=== PATIENT | female | born 1960 | race Caucasian/White ===

== ENCOUNTER → 2017-01-25 | Outpatient (CLI) | payer OTHER ==
[~2017-01-25] MED LIST: ASCO-63 PO; CHOL100027 PO; LUTE15CA PO; METO25TA3 PO; MULTTAB58 PO; PANT40TA PO
== END | disposition home or self-care (01) ==
LOC: C.PATHSPEC 15:58
PROVIDERS: ATTEND Obstetrics & Gynecology
DX: N84.1 Polyp of cervix uteri (principal)

== ENCOUNTER → 2017-02-03 | Outpatient (CLI) | payer OTHER ==
--- NOTE | 2017-02-03 12:32 | MAMMOGRAPHY REPORT ---
UNILATERAL RIGHT DIGITAL DIAGNOSTIC MAMMOGRAM TOMOSYNTHESIS WITH CAD AND TARGETED RIGHT ULTRASOUND: 02/03/2017 CLINICAL HISTORY: 56-year-old woman reported a history of remote bilateral breast pain, but now most ly right breast pain concentrated in the upper inner quadrant but extending throughout the entire br east. History of prior benign right breast ultrasound guided core biopsy. TECHNIQUE: Right breast CC and MLO 2-D digital and tomosynthesis images and an exaggerated medial ri ght CC 2-D view was obtained. Current study was also evaluated with a Computer Aided Detection (CAD ) system. COMPARISON: Comparison is made to exams dated: 04/08/2016 ultrasound biopsy, 04/08/2016 mammogram, ultrasound, 03/31/2016 mammogram, and 03/16/2016 mammogram - [facility]. BREAST COMPOSITION: The tissue of the right breast is heterogeneously dense, which may obscure smal l masses. FINDINGS: There is a stable ribbon shaped metallic biopsy marker in the 1:00 to 2:00 posterior right breast, at the site of the biopsied benign mass. No new suspicious mass, architectural distortion or cluster of suspicious microcalcifications is seen in the right breast. Real-time high-resolution ultrasound was performed in the area of pain pointed out by the patient, t hroughout the upper inner quadrant 12:00 to 3:00 axes but also including the 4:00 axis, and then thr oughout the remainder of the right breast. A solid mass with internal biopsy marker is again identi fied in the 1:00 axis that measures 18.1 x 10.8 mm. This has not significantly changed comparing to the ultrasound dated 03/31/2016 at which time it measured 18.0 x 10.4 mm. No other new suspicious solid or cystic mass is identified on ultrasound. IMPRESSION: ACR BI-RADS CATEGORY 2: BENIGN, TARGETED ULTRASOUND ACR BI-RADS CATEGORY 2: BENIGN Stable mammographic and sonographic appearance of the right breast, without mammographic or targeted sonographic evidence of malignancy. Recommend annual screening of the right breast in 1 year. Lef t breast annual mammography is due in March 2017. These results and recommendations were discussed with the patient at the time of the exam. She tent atively scheduled the left breast screening appointment prior to leaving our department. Approximately 10% of breast cancers are not detected with mammography. A negative mammographic repor t should not delay biopsy if a clinically suggestive mass is present. Devorah Ireland M.D. ay/:02/03/2017 10:33:50 Candy Separator Enrobing: Flora SANTAMARIA(Claudia)(Gay), [facility] letter sent: Normal 1/2 BI-RADS Code: ACR BI-RADS Category 2: Benign Ultrasound BI-RADS: ACR BI-RADS Category 2: Benign
== END | disposition home or self-care (01) ==
LOC: C.MAMM 08:40
PROVIDERS: ATTEND Obstetrics & Gynecology
DX: N64.89 Other specified disorders of breast (principal)

== ENCOUNTER 2017-03-11 09:25 | Emergency (ER) | payer OTHER ==
[~2017-03-11] VITALS: Ht 160 cm; Wt 59.5 kg
[2017-03-11 09:28] VITALS: TEMP 36.7; Ht 160 cm; Wt 59.5 kg
[2017-03-11] MEDS ORDERED: KETOROLAC TROMETHAMINE 30 MG/ML VIAL IV STA (10:03)
[2017-03-11] MEDS ORDERED: DiphenhydrAMINE HCL 50 MG/ML VIAL IV STA (10:03)
[2017-03-11] MEDS ORDERED: SODIUM CHLORIDE 0.9% 1000ML 1,000 ML IV STA (10:03)
[2017-03-11] MEDS ORDERED: PROCHLORPERAZINE 5 MG/ML 2 ML VIAL IV STA (10:03)
[2017-03-11 10:23] LABS: BASO % 0.5 %; BASO ABS # 0.03 K/uL (0-0.2); COMPLETE YES; EOS % 3.1 %; HEMATOCRIT 40.7 % (37-47); IG% 0.2 %; LYMPH % 19.4 %; LYMPH ABS # 1.13 K/uL (1.2-3.4); MEAN CELL VOLUME 87.7 fL (80-100); MEAN CORPUSCULAR HEMOGLOBIN 29.7 pg (25-34); MEAN CORPUSCULAR HGB CONC 33.9 g/dl (32-36); MEAN PLATELET VOLUME 10.4 fL (7.4-10.4); MONO % 8.1 %; NEUT % 68.7 %; PLATELET COUNT 165 K/uL (130-400); RED BLOOD COUNT 4.64 M/uL (4.2-5.4); WHITE BLOOD COUNT 5.82 K/uL (4.8-10.8)
--- NOTE | 2017-03-11 10:24 | EMERGENCY ROOM VISIT NOTE ---
History Report prepared by Francisca: Trudy Funes Under the Supervision of: Dr. Alona Vazquez M.D. First contact with patient: 09:52 Chief Complaint: STROKE SYMPTOMS Stated Complaint: DISORIENTED, NUMBNESS, FLASHING LIGHTS Nursing Triage Summary: Patient reports flashing lights in eyes, pain in right side of head, disoriented and numbness in bilateral fingers and nose. Pt states symptoms began approx 1.5 hours ago while eating breakfast. History of Present Illness The patient is a 56 year old female who presents to the Emergency Room with complaints of an episode of stroke symptoms this morning. She reports flashing lights in her eyes, feeling disoriented and confused, right sided headache, difficulty swallowing, and numbness on the left side of her face. She denies any hand pain or trouble walking. The numbness has resolved now. She has had these symptoms many times before throughout her life. She has seen a neurologist several times. She has not had these symptoms in many years and she is concerned about stroke. She reports she has been under increased stress for the past few months. Source of History: patient Onset: this morning Position: other (global) Quality: other (stroke symptoms) Timing: other (episodic) Associated Symptoms: + headache, + numbness Note: Pt reports flashing lights in her eyes, feeling disoriented and confused, difficulty swallowing. Pt denies hand pain, trouble walking. Review of Systems See HPI for pertinent positives & negatives. A total of 10 systems reviewed and were otherwise negative. Past Medical & Surgical Medical Problems: (1) Kidney disease Family History Cancer Gallbladder disease Heart disease Hypertension Lung disease Social History Smoking Status: Former Smoker Alcohol Use: none Marital Status: Housing Status: lives with roommate Occupation Status: employed Current/Historical Medications Scheduled Ascorbic Acid (Vitamin C), 1 TAB PO QAM Cholecalciferol (Vitamin D 1000 Unit), 1,000 INTER.UNIT PO QAM Lutein-Zeaxanthin (Lutein), 1 CAP PO QAM Metoprolol Succ (Toprol Xl) (Toprol-Xl), 25 MG PO QAM Multiple Vitamin (Multivitamin), 1 TAB PO QAM Pantoprazole (Protonix), 40 MG PO QAM Allergies Coded Allergies: Penicillins (Verified Allergy, Unknown, swelling, 03/11/17) Physical Exam Vital Signs Date Time Temp Pulse Resp B/P Pulse Ox O2 Delivery O2 Flow Rate FiO2 03/11/17 11:21 62 18 111/62 99 Room Air 03/11/17 10:00 70 03/11/17 09:28 36.7 65 17 153/82 99 Room Air Physical Exam Vital signs reviewed. General: Well-appearing, in no significant distress. HEENT: No scleral icterus, PERRLA, neck supple. Atraumatic. Cardiovascular: Regular rate and rhythm, no extra sounds. Pulmonary: Clear to auscultation bilaterally, normal work of breathing. Abdomen: Soft, nontender, nondistended, positive bowel sounds. Musculoskeletal: Atraumatic, no peripheral edema. Neurologic: Patient awake alert and oriented x 3, full strength in all 4 extremities. Cranial nerves 2 through 12 grossly intact. Skin: Warm, dry, no rash Medical Decision & Procedures ER Provider Diagnostic Interpretation: Radiology results as stated below per my review and radiologist interpretation: CT OF THE HEAD WITHOUT CONTRAST CLINICAL HISTORY: Cerebrovascular accident symptoms. Numbness. Altered mental status. COMPARISON STUDY: No previous studies for comparison. CT DOSE: 767.83 mGy.cm TECHNIQUE: Helical axial images of the head were obtained without IV contrast. Automated exposure control was utilized for the study. FINDINGS: This exam is mildly compromised by motion artifact. No acute intracranial hemorrhage, midline shift or mass effect is present. Ventricular system is normal. Basilar cisterns are patent. There are no extra-axial collections. Broussard-white differentiation is maintained. There are no findings to suggest acute dural sinus thrombosis or acute territorial infarct. Visualized portions of the mastoid air cells are clear. There is mild mucosal thickening of the ethmoid sinuses. There are no significant calvarial abnormalities. IMPRESSION: 1. No acute intracranial findings. 2. Study mildly compromised by motion artifact. Electronically signed by: Yomi Casey M.D. 03/11/2017 10:47 AM Dictated Date/Time: 03/11/2017 10:43 AM Laboratory Results 03/11/17 10:00 Red Blood Count 4.64, Mean Corpuscular Volume 87.7, Mean Corpuscular Hemoglobin 29.7, Mean Corpuscular Hemoglobin Concent 33.9, Mean Platelet Volume 10.4, Neutrophils (%) (Auto) 68.7, Lymphocytes (%) (Auto) 19.4, Monocytes (%) (Auto) 8.1, Eosinophils (%) (Auto) 3.1, Basophils (%) (Auto) 0.5, Neutrophils # (Auto) 4.00, Lymphocytes # (Auto) 1.13, Monocytes # (Auto) 0.47, Eosinophils # (Auto) 0.18, Basophils # (Auto) 0.03 03/11/17 10:00 Test 03/11/17 09:43 03/11/17 10:00 03/11/17 10:10 Bedside Prothrombin Time INR 1.0 (0.9-1.1) Bedside Glucose 103 mg/dl (70-90) White Blood Count 5.82 K/uL (4.8-10.8) Red Blood Count 4.64 M/uL (4.2-5.4) Hemoglobin 13.8 g/dL (12.0-16.0) Hematocrit 40.7 % (37-47) Mean Corpuscular Volume 87.7 fL (80-100) Mean Corpuscular Hemoglobin 29.7 pg (25-34) Mean Corpuscular Hemoglobin Concent 33.9 g/dl (32-36) Platelet Count 165 K/uL (130-400) Mean Platelet Volume 10.4 fL (7.4-10.4) Neutrophils (%) (Auto) 68.7 % Lymphocytes (%) (Auto) 19.4 % Monocytes (%) (Auto) 8.1 % Eosinophils (%) (Auto) 3.1 % Basophils (%) (Auto) 0.5 % Neutrophils # (Auto) 4.00 K/uL (1.4-6.5) Lymphocytes # (Auto) 1.13 K/uL (1.2-3.4) Monocytes # (Auto) 0.47 K/uL (0.11-0.59) Eosinophils # (Auto) 0.18 K/uL (0-0.5) Basophils # (Auto) 0.03 K/uL (0-0.2) RDW Standard Deviation 45.3 fL (36.4-46.3) RDW Coefficient of Variation 13.9 % (11.5-14.5) Immature Granulocyte % (Auto) 0.2 % Immature Granulocyte # (Auto) 0.01 K/uL (0.00-0.02) Anion Gap 4.0 mmol/L (3-11) Est Creatinine Clear Calc Drug Dose 75.1 ml/min Estimated GFR () 113.0 Estimated GFR (Non- 97.5 BUN/Creatinine Ratio 21.1 (10-20) Calcium Level 9.2 mg/dl (8.5-10.1) Magnesium Level 2.4 mg/dl (1.8-2.4) Total Bilirubin 0.6 mg/dl (0.2-1) Direct Bilirubin 0.1 mg/dl (0-0.2) Aspartate Amino Transf (AST/SGOT) 30 U/L (15-37) Alanine Aminotransferase (ALT/SGPT) 45 U/L (12-78) Alkaline Phosphatase 93 U/L (45-117) Total Creatine Kinase 54 U/L (26-192) Creatine Kinase MB 0.9 ng/ml (0.5-3.6) Creatine Kinase MB Ratio 1.7 (0-3.0) Total Protein 7.5 gm/dl (6.4-8.2) Albumin 4.1 gm/dl (3.4-5.0) Bedside Troponin I 0.000 ng/ml (0-0.045) Laboratory results per my review. Medications Administered Medications (Trade) Dose Ordered Sig/[place]urel Route Start Time Stop Time Status Last Admin Dose Admin Prochlorperazine Edisylate (Compazine Inj) 10 mg NOW STAT IV 03/11/17 10:03 03/11/17 10:05 DC 03/11/17 10:23 10 MG Diphenhydramine HCl (Benadryl Inj) 25 mg NOW STAT IV 03/11/17 10:03 03/11/17 10:05 DC 03/11/17 10:23 25 MG Ketorolac Tromethamine 30 mg 30 mg NOW STAT IV 03/11/17 10:03 03/11/17 10:05 DC 03/11/17 10:23 30 MG Sodium Chloride (Nss 1000ml) 1,000 ml @ 999 mls/hr Q1H1M STAT IV 03/11/17 10:03 03/11/17 11:03 DC 03/11/17 10:22 999 MLS/HR ECG Indication: weakness Rate (beats per minute): 65 Rhythm: normal sinus Findings: no acute ischemic change, no ectopy ED Course 1002: Past medical records reviewed. The patient was evaluated in room B11B. A complete history and physical examination was performed. 1003: NSS 1000 ml @ 999 mls/hr IV, Toradol Inj 30 mg IV, Benadryl Inj 25 mg IV, Compazine Inj 10 mg IV. 1118: Upon reevaluation, the patient appeared to have improvement of her symptoms. I discussed findings with her. She verbalized agreement of the treatment plan. She was discharged home. Medical Decision Differential diagnoses: Intracranial hemorrhage, intracranial mass, migraine headache, tension headache , sinusitis, meningitis This patient was evaluated and appeared to be in no significant distress. IV access was obtained and laboratory work was drawn. The patient's physical exam is unrevealing. There is no sign of stroke. Patient's laboratory work is unrevealing. The CT scan of the head is negative for acute abnormality. Patient was feeling improved after IV Compazine, IV Benadryl and IV Toradol. She was hydrated with normal saline solution. The patient had no pain on reevaluation. I suspect the patient is suffering from a migraine syndrome. She was encouraged to follow-up with neurology and her primary care physician. She will return to the ER for worsening of symptoms or any medical concerns. Impression Primary Impression: Migraine syndrome Scribe Attestation The scribe's documentation has been prepared under my direction and personally reviewed by me in its entirety. I confirm that the note above accurately reflects all work, treatment, procedures, and medical decision making performed by me. Departure Information Dispostion Home / Self-Care Referrals Thanh Norris M.D. (PCP) Forms HOME CARE DOCUMENTATION FORM, IMPORTANT VISIT INFORMATION Patient Instructions My [facility] Additional Instructions Diagnosis: Migraine syndrome. Drink plenty of clear fluids. Try to rest on a regular schedule. Tylenol 650 mg every 6 hours as needed for pain. Ibuprofen 600 mg every 6 hours as needed for pain with food. Follow-up with your physician this week for reevaluation and consideration of neurology referral. Return to the ER for worsening of symptoms or any medical concerns.
[2017-03-11 10:42] LABS: BUN/CREATININE RATIO 21.1 (10-20); CALCIUM 9.2 mg/dl (8.5-10.1); CREATININE 0.7 mg/dl (0.60-1.20); MAGNESIUM 2.4 mg/dl (1.8-2.4); POTASSIUM 3.8 mmol/L (3.5-5.1)
[2017-03-11 10:47] LABS: CKMB/CK RATIO 1.7 (0-3.0)
--- NOTE | 2017-03-11 10:49 | DIAGNOSTIC IMAGING REPORT ---
CT OF THE HEAD WITHOUT CONTRAST CLINICAL HISTORY: Cerebrovascular accident symptoms. Numbness. Altered mental status. COMPARISON STUDY: No previous studies for comparison. CT DOSE: 767.83 mGy.cm TECHNIQUE: Helical axial images of the head were obtained without IV contrast. Automated exposure control was utilized for the study. FINDINGS: This exam is mildly compromised by motion artifact. No acute intracranial hemorrhage, midline shift or mass effect is present. Ventricular system is normal. Basilar cisterns are patent. There are no extra-axial collections. Broussard-white differentiation is maintained. There are no findings to suggest acute dural sinus thrombosis or acute territorial infarct. Visualized portions of the mastoid air cells are clear. There is mild mucosal thickening of the ethmoid sinuses. There are no significant calvarial abnormalities. IMPRESSION: 1. No acute intracranial findings. 2. Study mildly compromised by motion artifact. Electronically signed by: Yomi Casey M.D. 03/11/2017 10:47 AM Dictated Date/Time: 03/11/2017 10:43 AM
[2017-03-11 11:21] VITALS: BP 111/62; PULSE 62; O2SAT 99
== END 2017-03-11 11:51 | disposition home or self-care (01) ==
LOC: C.EDB 09:27
DX: G43.909 Migraine, unspecified, not intractable, without status migrainosus (principal); N28.9 Disorder of kidney and ureter, unspecified; Z80.9 Family history of malignant neoplasm, unspecified; Z83.79 Family history of other diseases of the digestive system; Z82.49 Family history of ischemic heart disease and other diseases of the circulatory system; Z83.6 Family history of other diseases of the respiratory system; Z87.891 Personal history of nicotine dependence; Z79.899 Other long term (current) drug therapy

== ENCOUNTER → 2017-03-17 | Outpatient (CLI) | payer OTHER ==
[~2017-03-17] MED LIST changes: +CYCL10TA6 PO; +PRED20TA2 PO; +ULT/50 PO
--- NOTE | 2017-03-17 15:49 | MAMMOGRAPHY REPORT ---
UNILATERAL LEFT DIGITAL SCREENING MAMMOGRAM TOMOSYNTHESIS WITH CAD: 03/17/2017 CLINICAL HISTORY: Due for routine mammography of the left breast. The patient reports no current co mplaints of the left breast. She does report continued right breast pain, for which she had a diagn ostic workup January 2017. TECHNIQUE: Breast tomosynthesis in addition to standard 2D mammography was performed. Current study was also evaluated with a Computer Aided Detection (CAD) system. Left CC and MLO 2-D and tomosynth esis images were obtained. COMPARISON: Comparison is made to exams dated: 02/03/2017 ultrasound, 02/03/2017 mammogram, 04/08/2016 ultrasound biopsy, 04/08/2016 mammogram, and 03/31/2016 ultrasound - [facility]. BREAST COMPOSITION: The tissue of the left breast is heterogeneously dense, which may obscure small masses. FINDINGS: There are no suspicious masses, calcifications, or areas of architectural distortion noted in the left breast. There has been no significant interval change compared to prior exams. IMPRESSION: ACR BI-RADS CATEGORY 1: NEGATIVE There is no mammographic evidence of malignancy in the left breast. A 1 year screening mammogram is recommended. The patient was verbally notified of the results and will also receive written notific ation of the results. Approximately 10% of breast cancers are not detected with mammography. A negative mammographic repor t should not delay biopsy if a clinically suggestive mass is present. Miranda Hobson M.D. /:03/17/2017 14:54:35 Economic Specialist: Flora Doyle, [facility] letter sent: Normal 1/2 BI-RADS Code: ACR BI-RADS Category 1: Negative
== END | disposition home or self-care (01) ==
LOC: C.MAMM 13:58
PROVIDERS: ATTEND Obstetrics & Gynecology
DX: Z12.31 Encounter for screening mammogram for malignant neoplasm of breast (principal)

== ENCOUNTER → 2017-08-06 | Outpatient (CLI) | payer OTHER | END | disposition home or self-care (01) | LOC: C.PAPS 16:40 | PROVIDERS: ATTEND Obstetrics & Gynecology | DX: Z12.4 Encounter for screening for malignant neoplasm of cervix (principal) ==

== ENCOUNTER 2017-08-30 09:46 | Emergency (ER) | payer OTHER ==
[~2017-08-30] VITALS: Ht 160 cm; Wt 59.0 kg
[~2017-08-30 09:46] MED LIST changes: -CYCL10TA6 PO; -PRED20TA2 PO; -ULT/50 PO
[2017-08-30 09:47] VITALS: TEMP 36.6; Ht 160 cm; Wt 59.0 kg
--- NOTE | 2017-08-30 11:50 | DIAGNOSTIC IMAGING REPORT ---
LUMBAR SPINE 5 VIEWS CLINICAL HISTORY: Low back pain of several days' duration. No reported history of trauma. FINDINGS: Five views of the lumbar spine were obtained. No prior studies are available for comparison at the time of dictation. The skeletal structures are osteopenic. There is no radiographic evidence of fracture or malalignment. Vertebral body height and alignment are maintained. The transverse and spinous processes appear intact. There is no evidence of spondylolysis. Small anterior osteophytes are seen throughout. Mild facet arthropathy is seen in the lower lumbar region. The disc spaces are preserved. The visualized sacrum and bony pelvis appear intact. There is a nonobstructed abdominal bowel gas pattern noting mild colonic fecal retention. IMPRESSION: 1. No acute bony abnormality is seen involving the lumbar spine. 2. Osteopenia and minimal spondylotic change as above. Dictated: 08/30/2017 10:44 AM Transcribed: 08/30/2017 11:50 AM Jc Electronically signed by: Abdiaziz Mahoney M.D. 08/30/2017 11:52 AM Dictated Date/Time: 08/30/2017 10:44 AM
[2017-08-30] MEDS ORDERED: KETOROLAC TROMETHAMINE 60 MG/2 ML VIAL IM STA (12:07)
[2017-08-30] MEDS ORDERED: DEXAMETHASONE SOD INJ 10 MG/ML VIAL IM ONE (12:15)
[2017-08-30] MEDS ORDERED: MoRPHine SULFATE 4 MG/ML 1 ML CARP\\VIAL IM ONE (12:15)
[2017-08-30] MEDS ORDERED: PRED20TA2 PO (14:23)
[2017-08-30] MEDS ORDERED: ULT/50 PO (14:23)
[2017-08-30] MEDS ORDERED: CYCL10TA6 PO (14:23)
[2017-08-30 15:03] VITALS: BP 129/67; PULSE 67; O2SAT 97
--- NOTE | 2017-08-30 16:08 | EMERGENCY ROOM VISIT NOTE ---
History First contact with patient: 09:58 Chief Complaint: BACK PAIN Stated Complaint: SEVERE BACK PAIN History of Present Illness The patient is a 57 year old female who presents to the Emergency Room with complaints of severe low back pain that has been slowly worsening over the past 3-4 days. The patient does not have a distinct injury or trauma to explain her symptoms. She states that she felt some very mild discomfort in her back 3 days ago while at work. This has slowly increased in severity. She states that over the weekend she raked leaves, which exacerbate her symptoms. She got into the shower, and while she was in the shower her discomfort distinctly worsened. She rates the current discomfort a 9/10. There is some radiation of pain down both her legs. She has not had saddle paresthesias or similar symptoms in the past. She has intermittently been taking Advil without significant improvement of symptoms. Review of Systems More than 10 systems were reviewed and otherwise negative with the exception of history of present illness. Past Medical/Surgical History Medical Problems: (1) Kidney disease Family History Cancer Gallbladder disease Heart disease Hypertension Lung disease Social History Smoking Status: Never Smoker Alcohol Use: none Marital Status: Housing Status: lives with roommate Occupation Status: employed Current/Historical Medications Scheduled Ascorbic Acid (Vitamin C), 1 TAB PO QAM Cholecalciferol (Vitamin D 1000 Unit), 1,000 INTER.UNIT PO QAM Cyclobenzaprine Hcl (Flexeril), 10 MG PO TID Lutein-Zeaxanthin (Lutein), 1 CAP PO QAM Metoprolol Succ (Toprol Xl) (Toprol-Xl), 25 MG PO QAM Multiple Vitamin (Multivitamin), 1 TAB PO QAM Pantoprazole (Protonix), 40 MG PO QAM Prednisone (Prednisone Tab), 2 TAB PO DAILY Tramadol Hcl (Ultram), 50 MG PO Q8H Physical Exam Vital Signs Date Time Temp Pulse Resp B/P (MAP) Pulse Ox O2 Delivery O2 Flow Rate FiO2 08/30/17 15:03 67 18 129/67 97 08/30/17 14:02 61 18 129/66 98 Room Air 08/30/17 11:49 61 18 39/66 98 Room Air 08/30/17 09:47 36.6 63 16 152/87 98 Room Air Physical Exam VITALS: Vitals are noted on the nurse's note and reviewed by myself. Vital signs stable. GENERAL: Well-developed, well-nourished, white female who is in mild to moderate discomfort secondary to her stated complaint. She is cooperative with the examination. NECK: Supple without nuchal rigidity. No lymphadenopathy. No thyromegaly. Cervical spine is nontender. HEART: Regular rate and rhythm without murmurs gallops or rubs. LUNGS: Clear to auscultation bilaterally without wheezes, rales or rhonchi. No retractions or accessory muscle use. ABDOMEN: Positive normal bowel sounds x 4. Soft, nontender, without masses or organomegaly. No guarding or rebound tenderness. MUSCULOSKELETAL: No muscle atrophy, erythema, or edema noted. Mild tenderness appreciated along the lower lumbar spine. There is bilateral SI joint tenderness. No saddle paresthesias. Negative straight leg raise bilateral. NEURO: Patient was alert and oriented to person place and time. CN II through XII grossly intact. Deep tendon reflexes 2+ throughout. Medical Decision & Procedures ER Provider Diagnostic Interpretation: LUMBAR SPINE 5 VIEWS CLINICAL HISTORY: Low back pain of several days' duration. No reported history of trauma. FINDINGS: Five views of the lumbar spine were obtained. No prior studies are available for comparison at the time of dictation. The skeletal structures are osteopenic. There is no radiographic evidence of fracture or malalignment. Vertebral body height and alignment are maintained. The transverse and spinous processes appear intact. There is no evidence of spondylolysis. Small anterior osteophytes are seen throughout. Mild facet arthropathy is seen in the lower lumbar region. The disc spaces are preserved. The visualized sacrum and bony pelvis appear intact. There is a nonobstructed abdominal bowel gas pattern noting mild colonic fecal retention. IMPRESSION: 1. No acute bony abnormality is seen involving the lumbar spine. 2. Osteopenia and minimal spondylotic change as above. Medications Administered Medications (Trade) Dose Ordered Sig/Laurel Route Start Time Stop Time Status Last Admin Dose Admin Dexamethasone Sodium Phosphate (Decadron Inj) 10 mg NOW ONCE IM 08/30/17 12:15 08/30/17 12:16 DC 08/30/17 12:17 10 MG Ketorolac Tromethamine (Toradol Inj) 60 mg NOW STAT IM 08/30/17 12:07 08/30/17 12:08 DC 08/30/17 12:19 60 MG Morphine Sulfate (MoRPHine SULFATE INJ) 4 mg NOW ONCE IM 08/30/17 12:15 08/30/17 12:16 DC 08/30/17 12:18 4 MG ED Course Physical exam and history were performed. Nursing notes, EMR, and Medication List were personally reviewed. Patient appears to have back pain for the past few days. She does not have distinct injury or trauma. She does not have neurologic deficit to suggest cauda equina or spinal abscess. The patient was medicated as above. X-rays were performed. The x-rays do not show evidence of acute findings to explain the patient's discomfort. After medication the patient had slow but steady improvement of her symptoms. She was able to ambulate here in the department without significant worsening of her symptoms. The patient has had difficulty tolerating narcotic medication by mouth in the past. I will trial a course of tramadol him a Flexeril, and prednisone. I do feel the patient needs close follow-up with her primary care physician. She was otherwise invited back to the ER with any new, worsening, or concerning symptoms. Patient was pleased with plan of care and rated her discomfort a 4/10 at the time of departure. She is discharged home under the care of a female improvement director who is acting as the car driver today. The chart was completed utilizing [employer] Speech Voice Recognition Software. Grammatical errors, random word insertions, pronoun errors, and incomplete sentences are an occasional consequence of this system due to software limitations, ambient noise, and hardware issues. Any formal questions or concerns about the content, text, or information contained within the body of this dictation should be directly addressed to the provider for clarification. . Medical Decision Differential diagnosis: Etiologies such as musculoskeletal, disc herniation, fracture, aortic disease, metastatic disease, cord compression, discitis, infection, renal colic, gastrointestinal, acute exacerbation of chronic back pain, sciatica, cauda equina, as well as others were entertained. [place] Drug Monitoring Program Search Results: patient reviewed within database Medication Reconcilliation Current Medication List: was personally reviewed by me Blood Pressure Screening Patient's blood pressure: Normal blood pressure Impression Primary Impression: Low back pain Departure Information Dispostion Home / Self-Care Condition GOOD Prescriptions Tramadol Hcl (ULTRAM) 50 Mg Tab 50 MG PO Q8H for 3 Days, #9 TAB Prov: Tan Dumont PA-C 08/30/17 Cyclobenzaprine Hcl (FLEXERIL) 10 Mg Tab 10 MG PO TID for 7 Days, #21 TAB Prov: Tan Dumont PA-C 08/30/17 Prednisone (Prednisone Tab) 20 Mg Tab 2 TAB PO DAILY for 5 Days, #10 TAB Prov: Tan Dumont PA-C 08/30/17 Forms HOME CARE DOCUMENTATION FORM, Work Instructions, Additional Instructions: Patient was seen and evaluated today in the emergency department fo medical care. Return to work on 09/05/2017. Please excuse. IMPORTANT VISIT INFORMATION Patient Instructions My [facility] Additional Instructions You were seen and evaluated today on an emergency basis only. This is not a substitute for, or an effort to provide, complete comprehensive medical care. It is not possible to recognize and treat all injuries or illnesses in a single emergency department visit. For this reason it is recommended that you followup with your primary care physician in the next 2-3 days for recheck. For baseline pain relief you may alternate ibuprofen and acetaminophen every 4 hours for pain control. Take 600 mg ibuprofen (Advil) and then 4 hours later take 1000 mg acetaminophen (Tylenol). Do not take more than 3000 mg acetaminophen in a single day. Flexeril 1 tablet up to 3 times a day as needed for muscle spasms. No driving, working, or alcohol use with Flexeril. Take tramadol 50 mg every 8 hours for pain control Take prednisone as prescribed You are welcome to return to the emergency department anytime with new, worsening, or concerning symptoms. Work Instructions Additional Work Instructions: Patient was seen and evaluated today in the emergency department for medical care. Return to work on 09/05/2017. Please excuse.
== END 2017-08-30 15:04 | disposition home or self-care (01) ==
LOC: C.EDB 09:47 → C.EDC 15:04
DX: M54.5 Low back pain (principal); Z82.49 Family history of ischemic heart disease and other diseases of the circulatory system

== ENCOUNTER → 2017-11-30 | Outpatient (CLI) | payer OTHER ==
--- NOTE | 2017-11-30 14:30 | MAMMOGRAPHY REPORT ---
BILATERAL DIGITAL DIAGNOSTIC MAMMOGRAM TOMOSYNTHESIS WITH CAD AND TARGETED RIGHT ULTRASOUND: 8 CLINICAL HISTORY: 57-year-old woman presents with persistent pain in the right breast. The pain is c entered in the upper inner quadrant in the area of previously biopsied mass, but the pain also radiat es to the right shoulder and arm, particularly when the arm is in use. No skin erythema or nipple di scharge. Family history of breast cancer. TECHNIQUE: Bilateral breast tomosynthesis in addition to standard 2D mammography was performed. Curre nt study was also evaluated with a Computer Aided Detection (CAD) system. COMPARISON: Comparison is made to exams dated: 02/03/2017 ultrasound, 02/03/2017 mammogram, 04/08/2016 mammogram, 03/31/2016 ultrasound, and 03/31/2016 mammogram - [facility]. BREAST COMPOSITION: The tissue of both breasts is heterogeneously dense, which may obscure small mas ses. FINDINGS: There is a 17 mm partially circumscribed mass with associated ribbon-shaped biopsy marker c lip in the 2:00 posterior right breast, denoting the biopsy-proven fibroadenoma. This is stable in s ize comparing to prior mammograms but further evaluation with ultrasound was also performed for more accurate size comparison. No new suspicious masses, calcifications, areas of architectural distortio n or asymmetries are seen bilaterally. The left breast parenchymal pattern is stable comparing to pr ior mammograms. Targeted ultrasound was performed in the right breast in the areas of pain pointed out by the patient , mostly throughout the upper inner quadrant. In the 2:00 right breast, 2 cm from the nipple, there is an oval parallel circumscribed hypoechoic solid mass with internal linear biopsy marker clip. Thi s mass measures 18.4 x 9.9 x 19.9 mm and represents the biopsy-proven fibroadenoma. This has not sig nificantly changed in size comparing to an ultrasound performed 03/31/2016, at which time it measured 18.0 x 10.4 x 18.2 mm. The patient did report slight pain/abnormal sensation while scanning over th is mass. No other discrete solid or cystic mass is seen throughout the right upper inner quadrant. IMPRESSION: ACR BI-RADS CATEGORY 2: BENIGN, TARGETED ULTRASOUND ACR BI-RADS CATEGORY 2: BENIGN 1. Stable bilateral mammograms, without mammographic evidence of malignancy. 2. No new suspicious abnormality identified in the right breast upper inner quadrant on ultrasound. A previously biopsied fibroadenoma in the 2:00 right breast is stable in size dating back to at leas t 03/31/2016. 3. However, given that the patient is reporting continued pain in the right breast it is unclear if the fibroadenoma may be contributing to this abnormal sensation. Doubtful that it is causing pain in the arm and shoulder. Nevertheless, if it is a cause of the pain can consider surgical excision. O nola would recommend bilateral screening tomosynthesis mammography in one year. These results and recommendations were discussed with the patient at the time of the exam. Approximately 10% of breast cancers are not detected with mammography. A negative mammographic report should not delay biopsy if a clinically suggestive mass is present. Devorah Ireland M.D. ay/:11/30/2017 12:15:18 Automotive Service Consultant: Ne DELVALLE)(Gay), [facility] letter sent: Normal 1/2 BI-RADS Code: ACR BI-RADS Category 2: Benign Ultrasound BI-RADS: ACR BI-RADS Category 2: Benign
== END | disposition home or self-care (01) ==
LOC: C.MAMM 10:07
PROVIDERS: ATTEND Obstetrics & Gynecology
DX: D24.1 Benign neoplasm of right breast (principal); N64.4 Mastodynia